=== PATIENT | male | born 1930 | race Caucasian/White ===

== ENCOUNTER 2017-01-28 09:10 | Day surgery (SDC) | payer MEDICARE, OTHER ==
[~2017-01-28] VITALS: Ht 180.3 cm; Wt 85.8 kg
[~2017-01-28 09:10] MED LIST: AEROSPAN INH; ARICEPT10 M2 PO; ARICEPT10 MG/TAB PO; ATORVASTATIN CA20 M1 PO; BACITRACIN3.5 GM OP; BUSPIRONE HCL10 M2 PO; CALCIUM 500 +1 EAC9 PO; CAPSAICIN TP; CARBIDOPA-LEVO1 EAC8 PO; CELEXA10 MG PO; CELEXA20 MG PO; CIPRO250 MG PO; CLONIDINE HCL0.1 MG PO; CLONIDINE HCL0.2 M1 PO; CLONIDINE HCL0.2 MG PO; CLONIDINE HCL0.3 MG PO; COLACE-T100 MG PO; COLACE100 MG PO; COUMADIN PO; COUMADIN2 MG PO; COUMADIN4 M1 PO; COUMADIN4 MG PO; COUMADIN6 M1 PO; CRESTOR10 MG PO; DEPAKOTE250 M1 PO; EYE CAPS; FISH OIL1 CAP; HYDROCHLOROTHIA25 M1 PO; I VITE PO; I-VITE TABLET1 EACH PO; ICAPS TABLET1 TAB.S; LAMISIL15 GM TP; LASIX40 M1 PO; LEVITRA; LEVITRA20 MG; LISINOPRIL20 MG; LOPRESSOR50 M1 PO; LOVENOX100 MG/ML SQ; MAXZIDE 75/50 T1 TAB; METOPROLOL TART25 M1 PO; METOPROLOL TART50 MG PO; NORCO 5/325 TAB1 TAB PO; NORVASC10 M2 PO; NORVASC5 M1 PO; OXYBUTYNIN CHLOR5 MG; PERCOCET 5-3251 EACH PO; POTASSIUM CHLO20 ME3 PO; PRINIVIL20 M1 PO; PROSCAR5 MG PO; SERTRALINE HCL25 M3 PO; TERAZOSIN5 MG; TRIAMTERENE; TROSPIUM CHLORI20 M1 PO; TYLENOL325 M2 PO; VESANOID10 MG PO; VESICARE10 MG PO; VIAGRA50 MG PO; ZOCOR80 MG
[2017-01-28 10:23] LABS: BASO % 0.2 % (0-2); EOS % 1.5 % (0-7); EOSINOPHIL ABSOLUTE COUNT 0.1 tho/cmm (0.0-0.7); HCT-HEMATOCRIT 46.6 % (36.0-53.5); HGB-HEMOGLOBIN 14.8 gm/dl (13.5-17.0); IMMATURE GRANULOCYTES ABSOLUTE 0.01 tho/cmm (0-0.03); IMMATURE GRANULOCYTES PERCENT 0.2 % (0-0.3); LYMPH ABSOLUTE COUNT 0.4 tho/cmm (0.8-4.5); MCH (MEAN CORPUSCULAR HGB) 26.8 pg (28.0-32.0); MCHC MEAN CORPUSCULAR HGB CONC 31.8 % (32.0-36.0); MCV (MEAN CELL VOLUME) 84.4 fl (82.0-96.0); MEAN PLATELET VOLUME 9.5 cmc (9.4-12.4); MONO % 16.6 % (0-12); NEUTROPHIL ABSOLUTE COUNT 4.5 tho/cmm (1.6-8.0); NEUTROPHIL-AUTOMATED 4.5 tho/cmm (1.6-8.0); NEUTROPHILS % 75.5 % (40-80); PLATELET COUNT 173 tho/cmm (150-450); RED BLOOD COUNT 5.52 mil/cmm (4.40-5.70); RED CELL DISTRIBUTION WIDTH 16.3 % (12.4-16.4)
[2017-01-28 10:28] LABS: INR 1.2 INR (0.9-1.1); PROTHROMBIN TIME 13.7 SECONDS (9.0-13.6)
[2017-01-28 10:36] LABS: ANION GAP 11 mmol/L (0-20); BLOOD UREA NITROGEN 30 mg/dl (6-24); CALCIUM 8.9 mg/dl (8.5-10.5); CARBON DIOXIDE-VENOUS 31 mmol/L (22-32); CHLORIDE 102 mmol/l (96-110); CREATININE 0.99 mg/dl (0.60-1.30); GLUCOSE 82 mg/dL (70-110); POTASSIUM 4.3 mmol/L (3.7-5.1); SODIUM 140 mmol/L (135-145); eGFR VALUE FOR BLACK 80 mL/Min
== END 2017-01-28 14:25 ==
LOC: SHSB 09:10 → US 09:10 → SHSB 10:27 → US 11:30
PROVIDERS: Radiology Diagnostic Radiology; Surgery
PROC: 0W9G3ZZ Drainage of Peritoneal Cavity, Percutaneous Approach (ICD-10-PCS; principal; 2017-01-28)
DX: J90 Pleural effusion, not elsewhere classified (principal); E78.5 Hyperlipidemia, unspecified; I10 Essential (primary) hypertension; Z79.01 Long term (current) use of anticoagulants; Z79.899 Other long term (current) drug therapy; Z87.891 Personal history of nicotine dependence
CPT/HCPCS: J3010; J7030